=== PATIENT | female | born 1945 | race Caucasian/White ===

== ENCOUNTER → 2018-04-19 | Outpatient (CLI) | payer MEDICARE, OTHER ==
[~2018-04-19] MED LIST: LATA.005SO RIGHTEYE; TIMO.25OPS RIGHTEYE; Voltaren100 GM TOP
== END | disposition home or self-care (01) ==
LOC: LAB SHORT 11:58 → PLD 11:58
DX: L82.1 Other seborrheic keratosis (principal)
CPT/HCPCS: 88305

== ENCOUNTER → 2019-02-21 | Outpatient (CLI) | payer MEDICARE, OTHER | END | disposition home or self-care (01) | LOC: LAB 12:00 → LAB SHORT 12:00 | DX: N39.0 Urinary tract infection, site not specified (principal) | CPT/HCPCS: 87086 ==

== ENCOUNTER → 2021-10-09 | Outpatient (CLI) | payer MEDICARE, OTHER | END | disposition home or self-care (01) | LOC: LAB 14:58 → LAB SHORT 14:58 | DX: N39.0 Urinary tract infection, site not specified (principal) | CPT/HCPCS: 87086 ==

== ENCOUNTER 2022-08-31 12:08 | Day surgery (SDC) | payer MEDICARE, OTHER ==
[~2022-08-31] VITALS: Ht 162.6 cm; Wt 71.1 kg
[2022-08-31] MEDS ORDERED: Amlodipine Bes2.5 MG (12:24)
== END 2022-08-31 14:10 | disposition home or self-care (01) ==
LOC: ORSCSDS 12:08
PROVIDERS: Surgery
PROC: 0DJD8ZZ Inspection of Lower Intestinal Tract, Via Natural or Artificial Opening Endoscopic (ICD-10-PCS; principal; 2022-08-31 13:30)
DX: Z12.11 Encounter for screening for malignant neoplasm of colon (principal); Z80.0 Family history of malignant neoplasm of digestive organs; K57.30 Diverticulosis of large intestine without perforation or abscess without bleeding; E78.5 Hyperlipidemia, unspecified; Z87.891 Personal history of nicotine dependence; Z79.899 Other long term (current) drug therapy
CPT/HCPCS: J2704; J7120

== ENCOUNTER 2024-09-22 14:10 | Emergency (ER) | payer MEDICARE, OTHER ==
[~2024-09-22] VITALS: Ht 167.6 cm; Wt 72.6 kg
[~2024-09-22 14:10] MED LIST changes: +Amlodipine Bes2.5 MG
[2024-09-22] MEDS ORDERED: Ondansetron HCl 2 MG / ML 2ML Vial IV ONE (14:40)
[2024-09-22] MEDS ORDERED: Morphine Sulfate 4 MG/1 ML Injection IV PRN (14:40)
[2024-09-22] MEDS ORDERED: Propofol 10mg/ml 20 ml Vial (Procedural) IV SCH (15:25)
[2024-09-22] MEDS ORDERED: NS 1,000 ML IV SCH ×2 (15:25→15:30)
[2024-09-22 16:43] VITALS: BP 154/85
== END 2024-09-22 16:42 | disposition home or self-care (01) ==
LOC: ER 14:10
DX: S43.004A Unspecified dislocation of right shoulder joint, initial encounter (principal); W18.30XA Fall on same level, unspecified, initial encounter; Z87.891 Personal history of nicotine dependence; Z88.6 Allergy status to analgesic agent; Z88.5 Allergy status to narcotic agent
CPT/HCPCS: 23650; 73030; 96374-59; 96375-59; 99152; 99284-25; J2270; J2405; J2704; J7030

== ENCOUNTER 2025-05-14 08:27 | Day surgery (SDC) | payer MEDICARE, OTHER ==
[~2025-05-14] VITALS: Ht 162.6 cm; Wt 71.5 kg
[2025-05-14] MEDS ORDERED: Tranexamic Acid 100 ML IV ONE (08:46)
[2025-05-14] MEDS ORDERED: CeFAZolin Sodium 2,000 MG VIAL ONE (08:46)
[2025-05-14] MEDS ORDERED: Rocuronium Bromide 10 MG/ML 5ML Injection IV ONE ×2 (09:09→11:02)
[2025-05-14] MEDS ORDERED: Ondansetron HCl 2 MG / ML 2ML Vial ONE ×2 (09:09→13:54)
[2025-05-14] MEDS ORDERED: FentaNYL Citrate 50 MCG/ML 2 ML Injection ONE (09:09)
[2025-05-14] MEDS ORDERED: Metoclopramide HCl 5MG / ML 2ML Vial ONE ×2 (09:09→14:42)
[2025-05-14] MEDS ORDERED: Bupivacaine HCl 0.25% 30 ML Injection ONE (09:12)
[2025-05-14] MEDS ORDERED: Midazolam HCl 1MG / ML 2ML Vial ONE (09:14)
--- NOTE | 2025-05-14 10:09 | NUR ---
05/14/25 Myriam Sol 0915: PATIENT IN ROOM WITH CALL LIGHT IN REACH. FAMILY IN ROOM.
[2025-05-14] MEDS ORDERED: Sugammadex Sodium 200 MG/2ML SDV (100 MG/ML) ONE (13:02)
--- NOTE | 2025-05-14 13:38 | NUR ---
05/14/25 Pj Guevara PT ARRIVED TO PACU SLEEPING, LUNGS CLEAN AND CLEAR, ABLE TO DEEP BREATHE AND COUGH ON COMMAND. PT DRESSING ON RIGHT SHOULDER, DRESSING IS CLEAN DRY AND INTACT, POLAR ICE APPLIED ON TOP DRESSING. PT DISCHARGED TO STEP DOWN PT HAS NO PAIN NO NAUSEA. ABLE TO MOVE ALL NON SURGICAL EXTREMITIESON COMMAND, COUGH AND DEEP BREATHE INTACT. IV INTACT AND RUNNING WELL
[2025-05-14 13:45] VITALS: BP 166/88
--- NOTE | 2025-05-14 15:18 | NUR ---
05/14/25 1518 Pj Barrow PT ARRIVED IN STEP WITH C/O OF NAUSEA, 4MG ONDANSTERON GIVEN, PATIENT REPORTS NO PAIN. SON ARRIVED IN STEP DOWN EDUCATION PROVIDED TO BOTH PT AND SON REGARDING PAIN MEDICATION, DIET, ACTIVITY, DRESSING CARE, POLAR PACK MANAGEMENT, AND SLING CARE. PT VERBALIZED UNDERSTANDING AND HAD NO FURTHER QUESTIONS. WHILE PATIENT WAS DRESSING, PT REPORTED INCREASING NAUSEA, 10MG REGLAN GIVEN FOR NAUSEA, PT REPORTED THAT THE MEDICATION WAS HELPFUL AND WAS NO LONGER NASUEATED AT TIME OF DISCHARGE. IV REMOVED AND DRESSED WITH NO CONCERNS PT WAS TAKEN BY WHEELCHAIR FOR THE RIDE HOME.
== END 2025-05-14 15:04 | disposition home or self-care (01) ==
LOC: ORSCSDS 08:27
PROVIDERS: Orthopaedic Surgery Sports Medicine
PROC: 0RBJ4ZZ Excision of Right Shoulder Joint, Percutaneous Endoscopic Approach (ICD-10-PCS; principal; 2025-05-14 09:45)
PROC: 0RNJ4ZZ Release Right Shoulder Joint, Percutaneous Endoscopic Approach (ICD-10-PCS; principal; 2025-05-14 09:45)
DX: M75.121 Complete rotator cuff tear or rupture of right shoulder, not specified as traumatic (principal)
CPT/HCPCS: C1713; J0166; J0690; J2250; J2405; J2704; J2765; J3010; J7120; Q4125